=== PATIENT | male | born 1985 | race Two or more races ===

== ENCOUNTER 2017-04-12 10:57 | Inpatient (IN) | payer SELFPAY ==
[~2017-04-12] VITALS: Ht 182.9 cm; Wt 76.0 kg
[2017-04-12] MEDS ORDERED: SODIUM CHLORIDE 0.9% 1,000 ML IV ONE ×2 (11:30→12:45)
[2017-04-12] MEDS ORDERED: ACETAMINOPHEN 325 MG TAB PO ONE ×2 (11:30→18:30)
[2017-04-12 11:38] LABS: Basophils # (auto) 0 uL; Basophils % (auto) 0.5 % (0.0-2.0); Eosinophils # (auto) 0.1 uL; Eosinophils % (auto) 0.6 % (0.0-7.0); Hematocrit 39.5 % (41.0-53.0); Hemoglobin 13.4 g/dL (13.5-17.5); Lymphocytes # (auto) 0.7 uL; Mean Corpuscular Hemoglobin 28.5 pg (28.0-32.0); Mean Corpuscular Hgb Conc. 33.9 g/dL (32.0-36.0); Mean Corpuscular Volume 83.9 fL (80.0-100.0); Mean Platelet Volume 7.8 fL (6.9-10.8); Monocytes # (auto) 0.6 uL; Monocytes % (auto) 6.1 % (0.0-12.0); Neutrophils # (auto) 8.3 uL; Neutrophils % (auto) 85.8 % (37.0-80.0); Platelet Count (auto) 264 10^3/uL (140-450); White Blood Cell 9.7 10^3/uL (4.4-10.8)
[2017-04-12 12:00] LABS: Albumin 3.3 g/dL (3.4-5.0); Alkaline Phosphatase 122 U/L (45-117); Anion Gap 9 (5-15); Aspartate Aminotransferase 56 U/L (15-37); BUN/Creatinine Ratio 9.7; Bilirubin, Total 0.3 mg/dL (0.2-1.0); Blood Urea Nitrogen 10 mg/dL (7-18); Calcium 8.3 mg/dL (8.5-10.1); Carbon Dioxide 25 mmol/L (21-32); Chloride 100 mmol/L (98-107); GFR African American 108 mL/min; GFR Non-African American 89 mL/min; Glucose 106 mg/dL (74-106); Potassium 3.6 mmol/L (3.5-5.1); Sodium 134 mmol/L (136-145)
[2017-04-12 12:32] LABS: Lactic Acid w/Reflex 2.8 mmol/L (0.4-2.0); REFLEX LACTIC ACID YES OR NO YES
[2017-04-12] MEDS ORDERED: cefTRIAXone 1GM/50ML D5W 50 ML IV ONE (12:45)
[2017-04-12 14:12] LABS: Urine Bilirubin Negative (Negative); Urine Blood Negative /uL (Negative); Urine Color Yellow (Yellow); Urine Glucose Normal (Normal); Urine Ketone Negative (Negative); Urine Nitrite Negative (Negative); Urine RBC <1 /hpf (0 - 3); Urine Squamous Epithelial Cell FEW /hpf (<5); Urine Urobilinogen Normal (Negative); Urine pH 6.5 (5.0-8.0)
[2017-04-12] MEDS ORDERED: LEVOFLOXACIN 500MG 100 ML IV ONE (20:30)
[2017-04-12] MEDS ORDERED: ONDANSETRON HCL 4 MG/2 ML VIAL IV PRN (20:30)
[2017-04-12] MEDS ORDERED: TEMAZEPAM 15 MG CAP PO PRN (20:30)
[2017-04-12 21:00] VITALS: BP 96/52
[2017-04-12 21:30] VITALS: BP 96/52
[2017-04-12] MEDS: FAMOTIDINE 20 MG TAB PO SCH (22:14)
[2017-04-12] MEDS: SODIUM CHLORIDE 0.9% 1,000 ML IV SCH (22:14)
[2017-04-12] MEDS: ACETAMINOPHEN 325 MG TAB PO PRN (22:41)
[2017-04-13] MEDS: HYDROcodone-ACET 5/325MG TAB PO PRN ×2 (01:35→07:26)
[2017-04-13 04:54] VITALS: BP 102/58
[2017-04-13 06:12] LABS: Basophils # (auto) 0 uL; Basophils % (auto) 0.6 % (0.0-2.0); Eosinophils # (auto) 0.1 uL; Hematocrit 39.7 % (41.0-53.0); Hemoglobin 13.4 g/dL (13.5-17.5); Lymphocytes # (auto) 0.6 uL; Lymphocytes % (auto) 11.9 % (10.0-50.0); Mean Corpuscular Hemoglobin 28.3 pg (28.0-32.0); Mean Corpuscular Hgb Conc. 33.7 g/dL (32.0-36.0); Mean Corpuscular Volume 83.9 fL (80.0-100.0); Mean Platelet Volume 7.3 fL (6.9-10.8); Monocytes # (auto) 0.4 uL; Monocytes % (auto) 9.2 % (0.0-12.0); Neutrophils # (auto) 3.7 uL; Neutrophils % (auto) 76.3 % (37.0-80.0); Nucleated Red Blood Cells % 0.2 %; Platelet Count (auto) 208 10^3/uL (140-450); Red Cell Distribution Width 14.2 % (11.8-14.3); White Blood Cell 4.9 10^3/uL (4.4-10.8)
[2017-04-13 06:41] LABS: Albumin 2.8 g/dL (3.4-5.0); BUN/Creatinine Ratio 10.1; Bilirubin, Total 0.3 mg/dL (0.2-1.0); Calcium 7.8 mg/dL (8.5-10.1); Potassium 4.5 mmol/L (3.5-5.1)
[2017-04-13 08:00] VITALS: BP 129/79
[2017-04-13 08:46] VITALS: BP 129/79
[2017-04-13] MEDS: FAMOTIDINE 20 MG TAB PO SCH (09:45)
[2017-04-13] MEDS ORDERED: ENOXAPARIN SOD 40 MG/0.4 ML SYRINGE SC SCH (10:00)
[2017-04-13 13:00] VITALS: BP 122/78
[2017-04-13] MEDS: SODIUM CHLORIDE 0.9% 1,000 ML IV SCH (13:08)
[2017-04-13 15:22] VITALS: BP 129/79
[2017-04-13] MEDS: ACETAMINOPHEN 325 MG TAB PO PRN (15:45)
[2017-04-13] MEDS ORDERED: LEVOFLOXACIN 500MG 100 ML IV SCH (22:00)
== END 2017-04-13 16:45 | disposition home or self-care (01) | DRG 871 ==
LOC: ER 10:57 → OVERFLOW 10:58 → EAST 21:05
PROVIDERS: ADMIT Nurse Practitioner; ATTEND Nurse Practitioner
DX: A41.9 Sepsis, unspecified organism (principal); J18.9 Pneumonia, unspecified organism; R63.0 Anorexia; E86.0 Dehydration; Z82.49 Family history of ischemic heart disease and other diseases of the circulatory system; Z68.22 Body mass index [BMI] 22.0-22.9, adult
CPT/HCPCS: 36415; 70450; 71020; 74176; 80053; 81001; 83605; 84484; 85025; 87040; 87400; J0696; J1956; J2405